=== PATIENT | female | born 1950 | race Caucasian/White ===

== ENCOUNTER 2019-07-27 05:54 | Emergency (ER) | payer MEDICARE, BC ==
[~2019-07-27] VITALS: Ht 165.1 cm; Wt 86.2 kg
--- NOTE | 2019-07-27 06:20 | NUR ---
BIBFRIEND FROM HOME TO ER BED 16. AAOX4. NO RESP DISTRESS NOTYED, BREATHING EVEN AND UNLABORED. C/O L FLANK PAIN SINCE 1AM. PT REPORTS THAT PAIN WAS 10/10 INTERMITENT SHARP WHEN ITS STARTED BUT AT THE TIME OF ASSESSMENT, PT VERBALIZED THAT THE PAIN HAS GONE DOWN BY 50% AND RATES THE PAIN 5-10. PT DOES REPORT HAVING NAUSEA AND VOMITING BUT NONE AT THIS TIME. AWAITING MD FOR EVAL. URINE HAS BEEN COLLECTED AND SENT TO LAB
--- NOTE | 2019-07-27 06:30 | NUR ---
WAS AT BEDSIDE FOR EVAL
[2019-07-27 06:53] LABS: APPEARANCE,URINE CLEAR (CLEAR); BILIRUBIN,URINE NEGATIVE (NEGATIVE); BLOOD, URINE SMALL Ery/uL (NEGATIVE); COLOR,URINE YELLOW (YELLOW); KETONES,URINE NEGATIVE (NEGATIVE); LEUKOCYTE ESTERASE ,URINE NEGATIVE (NEGATIVE); NITRITE, URINE NEGATIVE (NEGATIVE); PH,URINE 8.5 (5.0-8.0); PROTEIN,URINE NEGATIVE (NEGATIVE); UGLUCOSE NEGATIVE (NEGATIVE); UROBILINOGEN,URINE 0.2 EU/dL (0.2)
--- NOTE | 2019-07-27 07:04 | NUR ---
BACK FROM CT ON WHEELCHAIR. OPTHALMIC TECH AT [facility]
--- NOTE | 2019-07-27 07:12 | NUR ---
IV LINE OBTAINED ON R AC 20G. BLOOD DRAWN AND GIVEN TO GRAPHICS PROGRAMMER AT BEDSIDE
[2019-07-27 07:21] LABS: BASOPHILS % (AUTO) 0.4 % (0.0-2.0); EOSINOPHILS % (AUTO) 0.4 % (0.0-6.0); HEMATOCRIT 39 % (33-45); HEMOGLOBIN 13.4 g/dL (11.5-14.8); LYMPHOCYTES # (AUTO) 0.7 /CMM (0.8-4.8); MEAN CORPUSCULAR HGB CONC 35 g/dl (31.0-36.0); MEAN CORPUSCULAR VOLUME 88 fL (82-100); MONOCYTES # (AUTO) 0.3 /CMM (0.1-1.30); MONOCYTES % (AUTO) 4.1 % (2.0-12.0); NEUTROPHILS # (AUTO) 6.2 /CMM (1.8-8.9); NEUTROPHILS % (AUTO) 85.1 % (43.0-81.0); PLATELET COUNT (AUTO) 237 /CMM (150-450); RED BLOOD CELL COUNT(AUTO) 4.45 MIL/uL (4.0-5.2); WHITE BLOOD COUNT (AUTO) 7.3 K/uL (4.3-11.0)
--- NOTE | 2019-07-27 07:22 | NUR ---
PT ENDORSED TO YOEL MILLER FOR PENNIE
[2019-07-27 07:29] LABS: CALCIUM, SERUM 9.5 mg/dL (8.5-10.1); CREATININE 0.9 mg/dL (0.6-1.3)
[2019-07-27 07:35] LABS: BILIRUBIN,DIRECT 0.1 mg/dL (0.0-0.2); BILIRUBIN,TOTAL 0.6 mg/dL (0.2-1.0); TOTAL PROTEIN, SERUM 7.4 g/dL (6.4-8.2)
--- NOTE | 2019-07-27 08:21 | NUR ---
IV removed. Catheter intact and site benign. Pressure and 4x4 applied to site. No bleeding noted. Patient discharged to home in stable condition. Written and verbal after care instructions given. Patient verbalizes understanding of instruction.
[2019-07-27 08:22] VITALS: BP 122/48
--- NOTE | 2019-07-27 08:22 | NUR ---
PATIENT DENIES PAIN AT THIS TIME. FAMILY AT BEDSIDE.
== END 2019-07-27 08:22 | disposition home or self-care (01) ==
LOC: ER 05:56
DX: N20.0 Calculus of kidney (principal); E03.9 Hypothyroidism, unspecified; Z88.0 Allergy status to penicillin
CPT/HCPCS: 36415; 80048-TC; 80076-TC; 81000-TC; 83690-TC; 85025-TC